=== PATIENT | female | born 1990 | race Caucasian/White ===

== ENCOUNTER 2018-06-14 10:47 | Day surgery (SDC) | payer OTHER ==
--- NOTE | 2018-06-14 05:52 | PDGENHP ---
History and Physical History and Physical: Assessment and Plan: 1. Pelvic pain Hawa has symptoms and exam concerning for endometriosis. We reviewed all conservative and surgical options. At the end of our discussion, she wishes to move forward with surgical excision of endometriosis with Dr. Sanchez. We discussed that she will see him preoperatively for an exam. In the meantime, I have recommended that she continue ibuprofen for pain relief. She cannot take any estrogen-based controls due to a history of migraines. 2. Nausea 3. Dyschezia 4. Dyspareunia, female Subjective: Patient ID: Hawa is a 28 y.o. female who presents to [facility] for endometriosis consult. HPI Hawa Bobo presents for a preoperative visit. She is scheduled for a robotic excision of endometriosis. The risks, benefits, and alternatives were presented and informed consent was obtained. 40 minutes of this 40 minute appointment was spent counceling, reviewing the procedure in detail, and discussing the preoperative and postoperative instructions. Below is a copy of our prior visit note. Monae is a 27-year-old para 0 here as a self-referral for endometriosis consult. Her providers have suspected endometriosis for a long time. Hawa's menses started at age 14 and they were painful from the beginning. She often had to miss school. She had a lot of nausea and vomiting with the pain. Her periods have always been irregular. At age 23, she noticed that her pain was worsening. She began having a lot of GI symptoms and worsening anxiety and depression. She was also having a lot of back pain that was initially diagnosed as a pinched nerve at L5. This was without an MRI. She was given muscle relaxers that kind of helped. She also has a lot of nausea with vomiting with pain she feels as if stress and travel exacerbates this. She has a lot of stomach cramping that feels like it is in her diaphragm. She has a lot of low back stiffness. All of these pains are worse with ovulation, menses , but also occur randomly during the month. On her periods, she feels like she has a UTI. She feels low midline pain that radiates out to her back and her hips. Painful to sit, she has increased sciatic pain as well. She feels a lot of cramping more on the left than the right. She also feels an ovarian pain that feels like a pulling sensation with ovulation as well as menses. She is currently working 3 jobs and missing a lot of work due to the pain. She was previously on Depakote, but has been off for about 9 months. She had a lot of issues with regulating her emotions and GI side effects with the Depakote, but it did not help her bleeding. She was also needing Lexapro during that time, but has since stopped that and feels much better from a mental health perspective. She has dyschezia which is worse with menses and ovulation. She notes that it feels like broken glass in her abdomen. She also feels like she has blood in her stools on her menses. She is never had a GI workup. She has painful intercourse that feels deep with penetration, and is a deep pain that lasts. Often times a hot shower is the only thing that will relieve that pain. She notices that heat helps most of her pain, as well as marijuana. 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 She is on her feet most of the day. She takes ibuprofen for her pain. She recently had a pelvic ultrasound with [facility], but those results are not available today. She will request those results to have them sent here. CURRENT MEDICATIONS: Current Outpatient Medications Medication Sig ibuprofen (ADVIL,MOTRIN) 200 mg tablet Take 800 mg by mouth 3 times daily as needed. sumatriptan (IMITREX) 50 mg tablet No current facility-administered medications for this visit. ALLERGIES: Patient has no known allergies. I have reviewed, verified and agree with the past medical, surgical and history as documented by the MA today. Review of Systems Constitutional: Positive for fatigue. Gastrointestinal: Positive for abdominal distention, abdominal pain and nausea. Genitourinary: Positive for dyspareunia, menstrual problem and pelvic pain. Musculoskeletal: Positive for arthralgias, back pain and myalgias. Objective: Vital Signs: Visit Vitals Ht 1.626 m (5' 4") Wt 79.3 kg (174 lb 12.8 oz) BMI 30.00 kg/m Physical Exam Constitutional: She is oriented to person, place, and time. She appears well- developed and well-nourished. Pulmonary/Chest: Effort normal. Abdominal: Soft. Musculoskeletal: Normal range of motion. Neurological: She is alert and oriented to person, place, and time. Skin: Skin is warm and dry. Psychiatric: She has a normal mood and affect. Her behavior is normal. Pelvic: Normal external genitalia. Tenderness bilateral uterosacral ligaments. Tenderness posterior cervix. Uterus mobile, no masses. Unable to palpate bilateral adnexa, no masses noted. Procedures DATA: N/A TIME/COUNSELING: I personally spent a total of 45 minutes. Of that 45 minutes was counseling/ coordination of patient's care. See my note above for details. Surjit Sanchez MD
[2018-06-14] MEDS ORDERED: ACETAMINOPHEN 500 MG TAB PO ONE (10:58)
[2018-06-14] MEDS ORDERED: PHENAZOPYRIDINE HCL 200 MG TAB PO ONE (10:58)
[2018-06-14] MEDS ORDERED: GABAPENTIN 300 MG CAP PO ONE (10:58)
[2018-06-14] MEDS ORDERED: ceFAZolin 2 GM/DEXTROSE 100 ML IV ONE (10:58)
[2018-06-14] MEDS ORDERED: LIDOCAINE 1% 2 ML INJ ID PRN (10:59)
[2018-06-14] MEDS ORDERED: LR 1,000 ML IV ONE (10:59)
--- NOTE | 2018-06-14 11:33 | PDHPUP ---
History & Physical Update H&P update statement: This history and physical update is based on an assessment of the patient which was completed after admission or registration (within 24 hours), but prior to the surgery/procedure. H&P update: H&P reviewed & patient examined, no change in patient's condition since H&P completed
--- NOTE | 2018-06-14 11:36 | PDANEPAE ---
ANE History of Present Illness endometrial ablation ANE Past Medical History - Cardiovascular History Hx Hypertension: No Hx Arrhythmias: No Hx Chest Pain: No Hx Coronary Artery / Peripheral Vascular Disease: No Hx CHF / Valvular Disease: No Hx Palpitations: No - Pulmonary History Hx COPD: No Hx Asthma/Reactive Airway Disease: No Hx Recent Upper Respiratory Infection: No Hx Oxygen in Use at Home: No Hx Sleep Apnea: No Sleep Apnea Screening Result - Last Documented: Negative Pulmonary History Comment: bronchitis in winter uses albuterol - Neurologic History Hx Cerebrovascular Accident: No Hx Seizures: No Hx Dementia: No - Endocrine History Hx Diabetes: No - Renal History Hx Renal Disorders: No - Liver History Hx Hepatic Disorders: No - Neurological & Psychiatric Hx Hx Neurological and Psychiatric Disorders: Yes Neurological / Psychiatric History Comment: anxiety/depression - Cancer History Hx Cancer: No - Congenital Disorder History Hx Congenital Disorders: No - GI History Hx Gastrointestinal Disorders: Yes Gastrointestinal History Comment: IBS vs endometriosis - Other Health History Other Health History: endometriosis. mild anemia - Chronic Pain History Chronic Pain: Yes (pelvic pain) - Surgical History Prior Surgeries: none in last 5 yrs ANE Review of Systems Review of Systems: - Exercise capacity METS (RN): 4 METS ANE Patient History - Allergies Allergies/Adverse Reactions: No Known Allergies Allergy (Verified 05/25/18 16:49) - Home Medications Home Medications: NK [No Known Home Meds] 05/25/18 [Last Taken Unknown] - NPO status NPO Status: no food or drink >8 hours NPO Since - Liquids (Date): 06/14/18 NPO Since - Liquids (Time): 10:15 NPO Since - Solids (Date): 06/13/18 NPO Since - Solids (Time): 20:00 - Anes Hx Anes Hx: no prior problems - Smoking Hx Smoking Status: Heavy smoker - Alcohol Use Alcohol Use: Rarely - Family Anes Hx Family Anes Hx: none Family Hx Anesthesia Complications: none ANE Labs/Vital Signs - Vital Signs Vital Signs: reviewed preoperatively; see RN documention for details Blood Pressure: 123/80 Heart Rate: 62 Respiratory Rate: 22 O2 Sat (%): 96 Height: 167.64 cm Weight: 78.925 kg ANE Physical Exam - Airway Neck exam: FROM Mallampati Score: Class 1 Mouth exam: normal dental/mouth exam - Pulmonary Pulmonary: no respiratory distress, clear to auscultation - Cardiovascular Cardiovascular: regular rate and rhythym, no murmur, rub, or gallop - ASA Status ASA Status: II ANE Anesthesia Plan Anesthesia Plan: general endotracheal anesthesia
[2018-06-14] MEDS ORDERED: fentaNYL 100 MCG/2 ML INJ ONE ×3 (11:41→13:54)
[2018-06-14] MEDS ORDERED: PROPOFOL 200 MG/20 ML VIAL ONE (11:41)
[2018-06-14] MEDS ORDERED: LIDOCAINE 2% 100 MG/5 ML SYR ONE (11:42)
[2018-06-14] MEDS ORDERED: BUPIVACAINE/EPI 0.5% 30 ML SDV ONE (11:48)
[2018-06-14] MEDS ORDERED: MIDAZOLAM 2 MG/2 ML VIAL ONE (12:14)
[2018-06-14] MEDS ORDERED: MIDAZOLAM 2 MG/2 ML VIAL IVP ONE (13:20)
[2018-06-14] MEDS ORDERED: PROMETHAZINE HCL 25 MG/ML INJ IVP PRN (13:21)
[2018-06-14] MEDS ORDERED: HYDROmorphONE/DILAUDID 2 MG/ML INJ IVP PRN (13:21)
[2018-06-14] MEDS ORDERED: NALOXONE HCL 0.4 MG/ML INJ IVP PRN (13:21)
[2018-06-14] MEDS ORDERED: ACETAMINOPHEN 500 MG TAB PO PRN (13:21)
[2018-06-14] MEDS ORDERED: oxyCODONE IR 5 MG TAB PO PRN (13:21)
[2018-06-14] MEDS ORDERED: DIAZEPAM 5 MG/ML 1 ML SYR IVP PRN (13:21)
[2018-06-14] MEDS ORDERED: ONDANSETRON 4 MG/2 ML VIAL IVP PRN (13:21)
[2018-06-14] MEDS ORDERED: SUGAMMADEX SODIUM 200 MG/2 ML VIAL IVP ONE (13:22)
[2018-06-14] MEDS ORDERED: KETOROLAC 30 MG/1 ML SDV ONE (13:22)
--- NOTE | 2018-06-14 13:41 | POSTANESTH ---
Post Anesthetic Evaluation Cardiovascular Status: Normal, Stable, Similar to Pre-Op Cond Respiratory Status: Normal, Stable, Similar to Pre-op Cond. Level of Consciousness/Mental Status: Can Participate in Eval, Alert and Oriented Pain Control: Adequate, Prn Tx Ordered Nausea/Vomiting Control: Adequate, Prn Tx Ordered Complications Possibly Related to Anesthesia: None Noted
--- NOTE | 2018-06-14 13:48 | POSTOPPROG ---
Post Op Note Date of Operation: 06/14/18 Surgeon: Surjit Sanchez Project Landscape Architect: Sveta Avila Anesthesia: GET(General Endotracheal) Pre-op Diagnosis: Endometriosis Post-op Diagnosis: Same Procedure: Robotic excision of endo, bilat ureterolysis and ovarianpex Findings: Endo Inf/Abcess present in the surg proc area at time of surgery?: No EBL: Minimal Complications: None
[2018-06-14] MEDS ORDERED: HYDROCODONE/APAP 5/325 TAB ONE ×2 (13:55→14:59)
[2018-06-14] MEDS: fentaNYL 100 MCG/2 ML INJ IVP PRN ×2 (13:56→14:05)
[2018-06-14] MEDS: HYDROCODONE/APAP 5/325 TAB PO PRN ×2 (14:10→15:01)
--- NOTE | 2018-06-14 14:28 | GOP ---
[f rep st] OPERATIVE REPORT DATE OF OPERATION: 06/14/2018 SURGEON: Surjit Sanchez MD SECOND MATE: Sveta Avila CFA ANESTHESIA: 1. General. PREOPERATIVE DIAGNOSIS: 1. Dysmenorrhea. 2. Endometriosis. 3. Midcycle pain. 4. Urinary frequency and urgency. 5. Dyschezia. POSTOPERATIVE DIAGNOSIS: 1. Dysmenorrhea. 2. Endometriosis. 3. Midcycle pain. 4. Urinary frequency and urgency. 5. Dyschezia. PROCEDURE PERFORMED: 1. Robotic excision of endometriosis in the posterior cul-de-sac, bilateral pelvic side conde. 2. Bilateral ureterolysis. 3. Excision of rectal lesion. 4. Bilateral ovariopexy. 5. Cystoscopy. FINDINGS: SPECIMENS: 1. Pelvic peritoneum with endometriosis. 1. Rectal lesions. 2. ESTIMATED BLOOD LOSS: Scant. DESCRIPTION OF PROCEDURE: The patient was taken to the operating room where she was identified. Gen eral anesthesia was administered and found to be adequate. She was placed in the lithotomy position and prepared and draped in normal sterile fashion. A Corley catheter was placed in her bladder. A Hu lka tenaculum was placed in the uterus for manipulation. A 1 cm infraumbilical incision was made with a scalpel. The Veress needle with the CO2 gas flowing w as advanced into the peritoneal cavity. The abdomen was then insufflated with carbon dioxide gas. T he 12 mm trocar, followed by the laparoscope were then inserted. The upper abdomen was unremarkable. There was no evidence of endometriosis on either diaphragm, liver, stomach, gallbladder, or upper a bdominal bowel. Two lateral ports were placed in the right, 1 on the left under direct visualization . She then was placed in Trendelenburg position and the da Errol robot docked on the left side. The instruments were then brought into the abdominal cavity under direct visualization. Within the pelvis, there were several small spots of endometriosis in the anterior cul-de-sac. She h ad more in the posterior cul-de-sac, especially along the uterosacral ligaments and the ovarian fossa e. She had several lesions on the distal rectum. She had no significant lesions on the ovaries, nor uterine serosa. The lesions in the anterior cul-de-sac were treated, followed by the ovaries. A bi lateral ovariopexy was then performed by attaching each ovary to the ipsilateral round ligaments near the internal inguinal ring with 3-0 Vicryl Rapide suture. The 2 lesions on the distal rectum were e xcised with the robotic scissors. These extended approximately 1/3 the thickness of the muscularis. The entire posterior cul-de-sac peritoneum was then excised from the distal rectum up to the cervix and laterally to the uterosacral ligaments. A bilateral ureterolysis was required given the endometr iosis overlying both ureters. The peritoneum at the pelvic brims was incised. The ureters were gent ly dissected free and lateralized off the overlying peritoneum and endometriosis from the pelvic brim down to the uterine arteries. Once this was accomplished, the entire pelvic sidewall peritoneum was completely excised. The pelvis was then irrigated with sterile saline, and hemostasis was present. The robot was then undocked. The fascia was closed with 0 Vicryl, skin with 4-0 Monocryl. Given her urinary frequency and urgency, cystoscopy was performed. Both ureters had vigorous jets of urine. There was no evidence of bladder, nor urethral injury seen. No obvious pathology was seen t o account for the patient's urinary symptoms. Anesthesia was then reversed. The patient taken to [facility] PACU awake, in stable condition. COMPLICATIONS: None. DISPOSITION: Patient stable to PACU. /[id number]/MODL
[2018-06-14 16:06] VITALS: BP 131/83
== END 2018-06-14 16:18 | disposition home or self-care (01) ==
LOC: FSGY 10:47
PROVIDERS: ATTEND Obstetrics & Gynecology
DX: N80.3 Endometriosis of pelvic peritoneum (principal); N80.5 Endometriosis of intestine; N80.1 Endometriosis of ovary; N94.6 Dysmenorrhea, unspecified; N94.10 Unspecified dyspareunia; R10.2 Pelvic and perineal pain; R35.0 Frequency of micturition; R39.15 Urgency of urination; R11.0 Nausea
CPT/HCPCS: J0690; J1885; J2001; J2250; J2704; J3010